=== PATIENT | male | born 1980 | race Caucasian/White ===

== ENCOUNTER → 2016-05-19 | Outpatient (CLI) | payer BC ==
--- NOTE | 2016-05-19 10:27 | CT ---
EXAMINATION TYPE: CT ChestAbdPelvis w con DATE OF EXAM: 05/19/2016 9:23 AM COMPARISON: Prior CT abdomen pelvis 13 November 2015, prior chest abdomen pelvis CT 10 Jul 2015, 24 Jul 2014, 14 January 2015 HISTORY: Testicular CA CT DLP: 1023.6 mGycm Automated exposure control for dose reduction was used. CONTRAST: CT scan of the chest, abdomen and pelvis is performed with Oral Contrast and with IV Contrast, patien t injected with 100 mL of Omnipaque 300. FINDINGS: LUNGS: The lungs are grossly clear, there is no concerning parenchymal mass or nodule identified. T here is no pleural effusion or pneumothorax seen. The tracheobronchial tree is patent. MEDIASTINUM: There are no greater than 1 cm hilar or mediastinal lymph nodes. No pericardial effusi on is seen. AORTA: No significant abnormality is seen. OTHER: No additional significant abnormality is seen. LIVER/GB: Liver shows low attenuation. Gallbladder is normal. PANCREAS: No significant abnormality is seen. SPLEEN: No significant abnormality is seen. ADRENALS: No significant abnormality is seen. KIDNEYS: Cystic foci associated with the kidneys compatible with cortical cysts measuring 14 mm mid p ole posteriorly on the right, subcentimeter lower pole on the left. Renal vein collar is present. REPRODUCTIVE ORGANS: No gross abnormality seen. BOWEL: No significant abnormality is seen. FREE AIR: No Free Air visible. ASCITES: None seen. RETROPERITONEAL ADENOPATHY: Retroperitoneal node axial image 79 shows a short axis measurement of 11 mm, additional node measures 12 mm between the inferior vena cava and aorta as on prior exam. URINARY BLADDER: No significant abnormality is seen. PELVIC ADENOPATHY: None visualized. OSSEOUS STRUCTURES: No significant abnormality is seen. IMPRESSION: Retroperitoneal nodes are unchanged compared to most recent CT but increased in size comp ared to prior CT 24 Jul 2014, 14 January 2015.
== END | disposition home or self-care (01) ==
LOC: RADCTMAIN 08:48
PROVIDERS: ATTEND Internal Medicine Hematology & Oncology
DX: Z03.89 Encounter for observation for other suspected diseases and conditions ruled out (principal); C62.90 Malignant neoplasm of unspecified testis, unspecified whether descended or undescended
CPT/HCPCS: 71260; 74177; Q9967

== ENCOUNTER → 2016-12-04 | Outpatient (CLI) | payer BC ==
--- NOTE | 2016-12-04 16:44 | CT ---
EXAMINATION TYPE: CT ChestAbdPelvis w con DATE OF EXAM: 12/04/2016 COMPARISON: CT chest abdomen and pelvis May 19, 2016 and older studies. Prior PET/CT August 03, 2015 HISTORY: Testicular cancer progress study. No active treatment. History of right-sided orchiectomy. CT DLP: 982.40 mGycm. Automated Exposure Control for Dose Reduction was Utilized. CONTRAST: CT scan of the thorax, abdomen and pelvis is performed with oral and with IV Contrast, patient inject ed with 100 ml mL of Omnipaque 300. FINDINGS: LUNGS: The lungs are grossly clear, there is no concerning parenchymal mass or nodule identified. T here is no pleural effusion or pneumothorax seen. The tracheobronchial tree is patent. MEDIASTINUM: There are no greater than 1 cm hilar or mediastinal lymph nodes. No cardiomegaly or pe ricardial effusion is seen. OTHER: No additional significant abnormality is seen. LIVER/GB: No significant abnormality is appreciated. PANCREAS: No significant abnormality is seen. SPLEEN: Tiny splenule anterior to the spleen on axial image 56 is stable. ADRENALS: No significant abnormality is seen. KIDNEYS: Subcentimeter foci likely reflecting simple cysts in both kidneys are redemonstrated. BOWEL: A few sigmoid colonic diverticula are redemonstrated. There is no CT evidence for acute divert iculitis. GENITAL ORGANS: No gross abnormality seen. LYMPH NODES: There is redemonstration of stable 1.0 x 0.9 cm lymph node aortocaval region on axial im age 81 that shows rim hyperdensity or enhancement with central hypodensity or necrosis. This is not s ignificantly changed from prior study. No new greater than 1cm abdominal or pelvic lymph nodes are ap preciated. There are prominent but subcentimeter right lower quadrant mesenteric lymph nodes redemons trated felt stable. OSSEOUS STRUCTURES: Mild multilevel anterior spurring in thoracic spine is present. Mild facet arthro artur lower lumbar spine is seen. OTHER: No significant additional abnormality is seen. IMPRESSION: Stable aortocaval 1.0 cm treated lymph node. No new mass or adenopathy is seen to sugges t neoplastic recurrence.
== END | disposition home or self-care (01) ==
LOC: RADCTMAIN 13:44
PROVIDERS: ATTEND Internal Medicine Hematology & Oncology
DX: C62.90 Malignant neoplasm of unspecified testis, unspecified whether descended or undescended (principal)
CPT/HCPCS: 71260; 74177; Q9967

== ENCOUNTER → 2017-01-20 | Outpatient (CLI) | payer BC ==
--- NOTE | 2017-01-20 14:15 | XR ---
EXAMINATION TYPE: XR chest 2V DATE OF EXAM: 01/20/2017 COMPARISON: Prior chest x-ray 05/02/2015 HISTORY: Dyspnea, chest pain TECHNIQUE: Frontal and lateral views of the chest are obtained. FINDINGS: There is been interval removal of the right-sided Port-A-Cath. No airspace disease, pneumo thorax, or pleural effusion. Cardiac mediastinal silhouette, pulmonary vascularity and vanessa not signi ficantly changed. IMPRESSION: Interval central venous catheter removal.
== END | disposition home or self-care (01) ==
LOC: RADXRMAIN 13:00
PROVIDERS: ATTEND Family Medicine
DX: R06.09 Other forms of dyspnea (principal); Z98.890 Other specified postprocedural states
CPT/HCPCS: 71020

== ENCOUNTER 2017-04-24 09:01 | Emergency (ER) | payer BC ==
[2017-04-24] MEDS ORDERED: RX INFO: IV CONTRAST WAS GIVEN 1 EACH MISC MISCELLANE PRN (09:33)
--- NOTE | 2017-04-24 09:48 | ED ---
General Adult HPI - General Chief complaint: Abdominal Pain Stated complaint: back and abdominal pain Time Seen by Provider: 04/24/17 09:22 Source: patient, RN notes reviewed Mode of arrival: ambulatory Limitations: no limitations - History of Present Illness Initial comments: 37-year-old male presents to the emergency department with a chief complaint of left-sided back pain. Patient states that he has had this left-sided back pain abdominal pain for the last week or so. He was concerned because he has a history of testicular cancer and he had very similar pain when it metastasized to his abdomen. He states that he is having some urgency of bowel movements with this. He states he just chronically has this pain. He states that he called his doctor and they scheduled him for an outpatient CAT scan but he just does not feel as if he can wait until Wednesday to have it done. Patient denies any fever chills with this. He denies any nausea or vomiting. He states he just continues to have the pains without that he should be evaluated. Patient denies any recent fever, chills, shortness of breath, chest pain, nausea vomiting, numbness or tingling, dysuria or hematuria, constipation or diarrhea, headaches or visual changes, or any other current symptoms. - Related Data Home Medications Medication Instructions Recorded Confirmed Vitamin B Complex 1 tab PO DAILY 08/21/15 08/23/15 Previous Rx's Medication Instructions Recorded Hydrocodone/Acetaminophen [Brandon 1 - 2 each PO Q4HR PRN #30 tab 08/23/15 5-325] Allergies Allergy/AdvReac Type Severity Reaction Status Date / Time No Known Allergies Allergy Verified 04/24/17 09:09 Review of Systems ROS Statement: Those systems with pertinent positive or pertinent negative responses have been documented in the HPI. ROS Other: All systems not noted in ROS Statement are negative. Past Medical History Past Medical History: Cancer Additional Past Medical History / Comment(s): testicular CAncer History of Any Multi-Drug Resistant Organisms: None Reported Past Surgical History: Orthopedic Surgery, Tonsillectomy Additional Past Surgical History / Comment(s): orchiectomy, left shoulder, port- a-cath Past Anesthesia/Blood Transfusion Reactions: No Reported Reaction Past Psychological History: No Psychological Hx Reported Smoking Status: Current some day smoker Past Alcohol Use History: Occasional Past Drug Use History: None Reported General Exam - General Exam Comments Initial Comments: General: The patient is awake and alert, in no distress, and does not appear acutely ill. Eye: Pupils are equal, round and reactive to light, extra-ocular movements are intact. Ears, nose, mouth and throat: There are moist mucous membranes. Neck: The neck is supple, there is no tenderness. Cardiovascular: There is a regular rate and rhythm. No murmur, rub or gallop is appreciated. Respiratory: Lungs are clear to auscultation, respirations are non-labored, breath sounds are equal. No wheezes, stridor, rales, or rhonchi. Gastrointestinal: Soft, non-distended, non-tender abdomen without masses or organomegaly noted. There is no rebound or guarding present. No CVA tenderness. Bowel sounds are unremarkable. Back: There is no tenderness to palpation in the midline. There is no obvious deformity. No rashes noted. Musculoskeletal: Normal ROM, no tenderness, There is no pedal edema. There is no calf tenderness or swelling. Sensation intact. Pulses equal bilaterally 2+. Neurological: CN II-XII intact, There are no obvious motor or sensory deficits. Coordination appears grossly intact. Speech is normal. Skin: Skin is warm and dry and no rashes or lesions are noted. Psychiatric: Cooperative, appropriate mood & affect, normal judgment. Limitations: no limitations Course Vital Signs 04/24/17 09:07 Temperature 97.0 F L Pulse Rate 60 Respiratory 20 Rate Blood Pressure 129/89 O2 Sat by Pulse 99 Oximetry Medical Decision Making - Medical Decision Making 37-year-old male presents for left-sided back pain and abdominal pain. At this time patient's CAT scan is reviewed. We did discuss that there is an enlarged lymph node. We discussed the need to follow-up with their oncologist. We did discuss return parameters all questions. Patient family stated they understood and the on agreement. All questions have been answered. They'll be discharged. - Lab Data Result diagrams: 04/24/17 09:37 04/24/17 09:37 Lab Results 04/24/17 04/24/17 04/24/17 Range/Units 09:37 09:37 09:45 WBC 5.9 (3.8-10.6) k/uL RBC 5.02 (4.30-5.90) m/uL Hgb 15.5 (13.0-17.5) gm/dL Hct 47.6 (39.0-53.0) % MCV 94.8 (80.0-100.0) fL MCH 31.0 (25.0-35.0) pg MCHC 32.7 (31.0-37.0) g/dL RDW 11.8 (11.5-15.5) % Plt Count 180 (150-450) k/uL Neutrophils % 74 % Lymphocytes % 18 % Monocytes % 5 % Eosinophils % 1 % Basophils % 0 % Neutrophils # 4.3 (1.3-7.7) k/uL Lymphocytes # 1.1 (1.0-4.8) k/uL Monocytes # 0.3 (0-1.0) k/uL Eosinophils # 0.1 (0-0.7) k/uL Basophils # 0.0 (0-0.2) k/uL Sodium 143 (137-145) mmol/L Potassium 5.0 (3.5-5.1) mmol/L Chloride 104 (98-107) mmol/L Carbon Dioxide 27 (22-30) mmol/L Anion Gap 12 mmol/L BUN 16 (9-20) mg/dL Creatinine 0.93 (0.66-1.25) mg/dL Est GFR (MDRD) Af Amer >60 (>60 ml/min/1.73 sqM) Est GFR (MDRD) Non-Af >60 (>60 ml/min/1.73 sqM) Glucose 85 (74-99) mg/dL Calcium 9.8 (8.4-10.2) mg/dL Total Bilirubin 0.6 (0.2-1.3) mg/dL AST 26 (17-59) U/L ALT 30 (21-72) U/L Alkaline Phosphatase 65 (38-126) U/L Total Protein 7.5 (6.3-8.2) g/dL Albumin 4.5 (3.5-5.0) g/dL Urine Color Light Yellow Urine Appearance Clear (Clear) Urine pH 7.5 (5.0-8.0) Ur Specific [place] 1.013 (1.001-1.035) Urine Protein Negative (Negative) Urine Glucose (UA) Negative (Negative) Urine Ketones Negative (Negative) Urine Blood Negative (Negative) Urine Nitrite Negative (Negative) Urine Bilirubin Negative (Negative) Urine Urobilinogen <2.0 (<2.0) mg/dL Ur Leukocyte Esterase Negative (Negative) - Radiology Data Radiology results: report reviewed, image reviewed Disposition Clinical Impression: Lymph node enlargement, Abdominal pain Disposition: HOME SELF-CARE Condition: Stable Instructions: Abdominal Pain (ED) Additional Instructions: Please use medication as discussed. Please follow up with family doctor if symptoms have not improved over the next two days. Please return to the emergency room if your symptoms increase or worsen or for any other concerns. Referrals: Cecil Luciano MD [Primary Care Provider] - 1-2 days Saulo Cervantes MD [STAFF PHYSICIAN] - 1-2 days Time of Disposition: 11:10
[2017-04-24 09:55] LABS: Basophils % (A) 0 %; Eosinophils # (A) 0.1 k/uL (0-0.7); Eosinophils % (A) 1 %; HCT 47.6 % (39.0-53.0); HGB 15.5 gm/dL (13.0-17.5); Lymphocytes # (A) 1.1 k/uL (1.0-4.8); Lymphocytes % (A) 18 %; MCHC 32.7 g/dL (31.0-37.0); MCV 94.8 fL (80.0-100.0); Mean Platelet Volume 6.8; Monocytes # (A) 0.3 k/uL (0-1.0); Monocytes % (A) 5 %; Neutrophils # (A) 4.3 k/uL (1.3-7.7); Neutrophils % (A) 74 %; Platelet Count 180 k/uL (150-450); RBC 5.02 m/uL (4.30-5.90); RDW 11.8 % (11.5-15.5); WBC 5.9 k/uL (3.8-10.6)
[2017-04-24 09:56] LABS: Appearance,Urine Clear (Clear); Bilirubin,Urine Negative (Negative); Blood,Urine Negative (Negative); Color,Urine Light Yellow; Glucose,Urine (UA) Negative (Negative); Ketones,Urine Negative (Negative); Leukocyte Esterase,Urine Negative (Negative); Nitrite,Urine Negative (Negative); PH, Urine 7.5 (5.0-8.0); Protein,Urine Negative (Negative); Specific Gravity,Urine 1.013 (1.001-1.035); Urobilinogen,Urine <2.0 mg/dL (<2.0)
[2017-04-24 10:08] LABS: ALT 30 U/L (21-72); AST 26 U/L (17-59); Albumin 4.5 g/dL (3.5-5.0); Alkaline Phosphatase 65 U/L (38-126); Anion Gap 12 mmol/L; Blood Urea Nitrogen 16 mg/dL (9-20); Calcium 9.8 mg/dL (8.4-10.2); Carbon Dioxide 27 mmol/L (22-30); Chloride 104 mmol/L (98-107); Glucose 85 mg/dL (74-99); Sodium 143 mmol/L (137-145); Total Bilirubin 0.6 mg/dL (0.2-1.3); Total Protein 7.5 g/dL (6.3-8.2)
--- NOTE | 2017-04-24 10:41 | CT ---
EXAMINATION TYPE: CT abdomen pelvis w con DATE OF EXAM: 04/24/2017 REFERENCE: Previous CT scan of the chest, abdomen and pelvis dated 12/04/2016 HISTORY: Pain HISTORY: Abdominal pain; testicular cancer stage 3 CT DLP: 1441 mGy Automated exposure control for dose reduction was used. TECHNIQUE: Helical acquisition through the abdomen and pelvis was obtained following the oral ingesti on of without Oral Contrast and following intravenous administration of 100 ml mL of Omnipaque 300. T he data was reformatted in axial, coronal and sagittal projections. FINDINGS: Visualized portions of the lungs are clear. There is no pleural or pericardial fluid. The heart is not enlarged. Within the abdomen, the liver is normal in size. The liver, spleen and gallbladder appear normal. Both adrenal glands appear normal. There is a 1.4 cm cystic lesion in the mid polar region of the right kidney. This is slightly more ap parent than on the previous exam. There is a 3 to 4 mm low attenuating lesion in the lower pole of th e left kidney, unchanged from previous. The pancreas is unremarkable. Previously described 9.3 x 9.8 elevated lymph node in the aortocaval region of the abdomen is minimal ly more prominent on today's examination measuring 12.8 mm. No other retroperitoneal, iliac or inguin al adenopathy is seen. The bladder is unremarkable. There is no significant diverticular change and there is no radiographic evidence of diverticulitis. The appendix is normal. Small bowel loops are normal in caliber. There is no free fluid and no free air. No bony destructive lesion is seen. There is minimal hypertrophic spondylosis in the lower dorsal spi ne. IMPRESSION: 1. NO ACUTE INFLAMMATORY ABNORMALITY. 2. NO OSSEOUS LESION. 3. DIFFERENCE IN MEASUREMENTS OF THE AORTOCAVAL LYMPH NODE NOTED PREVIOUSLY IS LIKELY WITHIN THE AREA S OF MEASUREMENT. 4. PROBABLE CYSTIC CHANGE IN BOTH KIDNEYS. THIS COULD BE CONFIRMED WITH ULTRASOUND.
[2017-04-24] MEDS ORDERED: LORazepam 2 MG/ML INJ IV STA (11:11)
[2017-04-24 11:31] VITALS: BP 115/87; PULSE 74; RESP 18; TEMP 98.7
== END 2017-04-24 11:30 | disposition home or self-care (01) ==
LOC: EC 09:01
DX: R59.0 Localized enlarged lymph nodes (principal); R10.9 Unspecified abdominal pain; M54.9 Dorsalgia, unspecified; Z85.47 Personal history of malignant neoplasm of testis; Z90.79 Acquired absence of other genital organ(s); Z79.899 Other long term (current) drug therapy
CPT/HCPCS: 36415; 80053; 85025; 81003; 74177; 99284; 96374; J2060; Q9967

== ENCOUNTER → 2017-06-03 | Outpatient (CLI) | payer BC ==
--- NOTE | 2017-06-03 19:42 | CT ---
EXAMINATION TYPE: CT abdomen pelvis w con DATE OF EXAM: 06/03/2017 COMPARISON: 12/04/2016 and 04/24/2017. HISTORY: Patient in for follow up on testicular cancer-right teste removed. CT DLP: 1290.2 mGycm Automated exposure control for dose reduction was used. TECHNIQUE: Helical acquisition of images was performed from the lung bases through the pelvis. CONTRAST: Performed with Oral Contrast and with IV Contrast, patient injected with 100 mL of Isovue M300. FINDINGS: LUNG BASES: No significant abnormality is appreciated. LIVER/GB: No new focal hepatic masses are seen. The liver is unremarkable in enhancement. No intrahep atic biliary ductal dilatation. No cholelithiasis. PANCREAS: No significant abnormality is seen. SPLEEN: No significant abnormality is seen. Small splenule is again seen anterior to the pauma splee n. ADRENALS: No thickening or nodularity. KIDNEYS: 9 mm right upper pole renal cyst is appreciated. Otherwise the kidneys enhance symmetrically . FREE AIR: No free air is visualized. ADENOPATHY: 1.2 cm short axis peripherally calcified centrally necrotic aortocaval lymph node is unc hanged from the prior examinations. No new adenopathy. Small (nonpathologically enlarged) internal il iac lymph nodes are seen and superficial inguinal lymph nodes are seen. REPRODUCTIVE ORGANS: No significant abnormality is seen URINARY BLADDER: Incompletely distended but otherwise unremarkable. OSSEOUS STRUCTURES: Osseous structures appear intact. Minimal degenerative changes of the lower thor acic spine are seen. No suspicious osseous lesion. BOWEL: Appendix is air-filled and within normal limits. Few sigmoid diverticula are again appreciate d. No bowel thickening or dilatation. IMPRESSION: 1. STABLE PERIPHERALLY CALCIFIED SOLITARY AORTOCAVAL LYMPH NODE IN COMPARISON TO PRIOR EXAMS. NO NEW ADENOPATHY WITHIN THE ABDOMEN OR PELVIS. 2. NO NEW EVIDENCE OF VISCERAL OR OSSEOUS METASTASIS WITHIN THE ABDOMEN OR PELVIS.
== END | disposition home or self-care (01) ==
LOC: RADCTMAIN 14:34
PROVIDERS: ATTEND Internal Medicine Hematology & Oncology
DX: C62.90 Malignant neoplasm of unspecified testis, unspecified whether descended or undescended (principal); R59.0 Localized enlarged lymph nodes
CPT/HCPCS: 74177; Q9967

== ENCOUNTER → 2017-06-16 | Outpatient (CLI) | payer BC ==
--- NOTE | 2017-06-16 11:57 | ECHOS ---
STRESS ECHOCARDIOGRAM INDICATIONS: Chest pain. BASELINE HEART RATE: 64 BASELINE BLOOD PRESSURE: 115/82 MAXIMUM HEART RATE: 176 MAXIMUM BLOOD PRESSURE: 152/70 85% MPHR: 156 100% MPHR: 184 METS: 12.1 MAXIMUM STAGE REACHED: 3 TOTAL EXERCISE TIME: 11:06 CLINICAL INFORMATION: Baseline EKG shows sinus rhythm, normal axis, normal intervals. Patient exercised on Irwin protocol for a total of 11 minutes achieving 12 METS, 95% of predicted maximal heart rate without chest pain or diagnostic ST-segment depression. Baseline echo shows normal left ventricular size, wall motion, systolic function. Postexercise, there is normal hyperdynamic response of all segments of myocardium noted. CONCLUSIONS: 1. Excellent exercise tolerance. 2. Negative stress test by EKG criteria. 3. Negative stress echo. MMODL / IJN: [id number] /
== END | disposition home or self-care (01) ==
LOC: RADNMMAIN 10:01
PROVIDERS: ATTEND Family Medicine
DX: R07.9 Chest pain, unspecified (principal)
CPT/HCPCS: 93017; 93350

== ENCOUNTER → 2017-06-25 | Outpatient (CLI) | payer BC ==
--- NOTE | 2017-06-30 16:51 | HM ---
HOLTER MONITOR REPORT DATE OF STUDY: 06/25/2017 CLINICAL INFORMATION: The patient was monitored for 24 hours. The baseline rhythm appeared to be a sinus mechanism with a minimum heart rate of 47 beats per minute, maximum heart rate of 142 beats per minute, and average heart rate of 75 beats per minute. Ventricular ectopic events were not seen during this 24-hour monitoring. Supraventricular ectopic events were a rare as well. No evidence of any sustained tachy- or bradyarrhythmia noted. The patient reported some symptoms of sharp pain, and these episodes were associated with sinus mechanism. CONCLUSION: 1. This is a 24-hour Holter monitor. 2. Sinus rhythm as the baseline mechanism. 3. Rare supraventricular ectopic events. 4. No evidence of any ventricular ectopic events. 5. No evidence of sinus pause or sinus arrest. 6. The patient reported intermittent episodes of symptoms of squeezing and sharp pain, and the symptoms were associated with normal sinus mechanism. MMODL / IJN: [id number] /
== END | disposition home or self-care (01) ==
LOC: RADECHMAIN 11:57
PROVIDERS: ATTEND Family Medicine
DX: I49.3 Ventricular premature depolarization (principal)
CPT/HCPCS: 93225; 93226

== ENCOUNTER 2017-12-07 01:27 | Emergency (ER) | payer BC ==
--- NOTE | 2017-12-07 01:30 | ED ---
General Adult HPI - General Stated complaint: Chest pain Time Seen by Provider: 12/07/17 01:30 - History of Present Illness Initial comments: Camelia is a 37-year-old gentleman with a past medical history of testicular cancer with recurrence and metastases which was treated with chemotherapy. Patient presents the emergency department today for evaluation of chest pain and pressure. Patient reports that he's been having intermittent chest pressure and a feeling that there is pressure crushing his chest with occasional sharp pains for a few days. Patient reports the pain seemed to be worse at night. He reports that when he is around his cancer work he is able to distract himself from this pain. Patient reports that last night he was laying in bed and felt like there was a heavy weight on his throat and chest. This kept him awake throughout the night. Today patient was able to go golfing with his friends. He was able to perform 9 rounds of golf and carry his golf bag with no difficulty despite being somewhat tired from not sleeping well. Patient reports that this evening again when he tried to go to bed he felt as though there was a weight on his neck and chest. is been evaluated in the past and had a thorough cardiac evaluation including an echo, cardiac stress test, Holter monitor. These were unremarkable. During history patient began to cry and did state that he feels as though he may be having panic attacks because his follow-up PET scan is later this week and he is very paranoid that he is going to be diagnosed with cancer again. - Related Data Home Medications Medication Instructions Recorded Confirmed Vitamin B Complex 1 tab PO DAILY 08/21/15 08/23/15 Previous Rx's Medication Instructions Recorded Hydrocodone/Acetaminophen [[place] 1 - 2 each PO Q4HR PRN #30 tab 08/23/15 5-325] LORazepam [Ativan] 0.5 mg PO BID #10 tab 04/24/17 LORazepam [Ativan] 1 mg PO HS 5 Days #5 tab 12/07/17 Allergies Allergy/AdvReac Type Severity Reaction Status Date / Time No Known Allergies Allergy Verified 12/07/17 01:38 Review of Systems ROS Statement: Those systems with pertinent positive or pertinent negative responses have been documented in the HPI. ROS Other: All systems not noted in ROS Statement are negative. Past Medical History Past Medical History: Cancer Additional Past Medical History / Comment(s): testicular CAncer History of Any Multi-Drug Resistant Organisms: None Reported Past Surgical History: Orthopedic Surgery, Tonsillectomy Additional Past Surgical History / Comment(s): orchiectomy, left shoulder, port- a-cath Past Anesthesia/Blood Transfusion Reactions: No Reported Reaction Past Psychological History: No Psychological Hx Reported Smoking Status: Current some day smoker Past Alcohol Use History: Occasional Past Drug Use History: None Reported General Exam - General Exam Comments Initial Comments: GENERAL: Patient is well-developed and well-nourished. Patient is nontoxic and well- hydrated and is in no distress. HENT: Normocephalic, Atraumatic. Neck is soft and supple. No significant lymphadenopathy is noted. Oropharynx is clear. Moist mucous membranes. Neck has full range of motion without eliciting any pain. EYES: The sclera were anicteric and conjunctiva were pink and moist. Extraocular movements were intact and pupils were equal round and reactive to light. Eyelids were unremarkable. PULMONARY: Unlabored respirations. Good breath sounds bilaterally. No audible rales rhonchi or wheezing was noted. CARDIOVASCULAR: There is a regular rate and rhythm without any murmurs gallops or rubs. ABDOMEN: Soft and nontender with normal bowel sounds. SKIN: Skin is clear with no lesions or rashes and otherwise unremarkable. NEUROLOGIC: Patient is alert and oriented x3. Cranial nerves II through XII are grossly intact. Motor and sensory are also intact. Normal speech, volume and content. Symmetrical smile. MUSCULOSKELETAL: Normal extremities with adequate strength and full range of motion. No lower extremity swelling or edema. No calf tenderness. LYMPHATICS: No significant lymphadenopathy is noted PSYCHIATRIC: Appropriately anxious Limitations: no limitations Course Vital Signs 12/07/17 12/07/17 12/07/17 01:36 01:54 02:58 Temperature 97.8 F Pulse Rate 62 64 Pulse Rate [ 65 Clinical Appeals Auditor ] Respiratory 17 15 Rate Blood Pressure 154/99 116/78 O2 Sat by Pulse 100 96 Oximetry EKG Findings - EKG Comments: EKG Findings:: EKG obtained at 1:39 AM, rate is 65, rhythm is sinus, normal axis , normal intervals, MI 138, QRS 90, QTC 420. There is no evidence of acute ischemia infarction. Medical Decision Making - Medical Decision Making The patient was seen and evaluated, history was obtained from the patient Patient with palpitations and a crushing feeling of his throat and chest which is worse when laying down at night and resolves with distraction. Considering the patient's history I do suspect that this is likely anxiety related to his upcoming PET scan in his appropriate worried that he may be diagnosed with recurrent metastatic testicular cancer. However given the cancer history and history of chemotherapy I do feel he warrants a workup to rule out PE or acute coronary syndrome. Patient is agreeable to this. EKG normal sinus rhythm with no evidence of acute ischemia or infarction Chest x-ray with no acute pathology Labs and no significant abnormalities Patient resting comfortably with resolution of his symptoms after Ativan Results were discussed with the patient who expresses some relief. Patient expresses some embarrassment that he has here if nothing is wrong. I reassured the patient that this is an appropriate anxiety considering his medical history and his fear of recurrent testicular cancer. At this time I will prescribe the patient a few days of Ativan to take at night to help him sleep. Patient is agreeable to this. All questions pertaining to care were answered the best my ability and the patient was discharged home in stable condition. - Lab Data Result diagrams: 12/07/17 01:50 12/07/17 01:50 Lab Results 12/07/17 12/07/17 12/07/17 Range/Units 01:50 01:50 01:50 WBC 5.8 (3.8-10.6) k/uL RBC 4.90 (4.30-5.90) m/uL Hgb 15.1 (13.0-17.5) gm/dL Hct 43.4 (39.0-53.0) % MCV 88.6 (80.0-100.0) fL MCH 30.8 (25.0-35.0) pg MCHC 34.8 (31.0-37.0) g/dL RDW 12.0 (11.5-15.5) % Plt Count 184 (150-450) k/uL Neutrophils % 50 % Lymphocytes % 38 % Monocytes % 7 % Eosinophils % 2 % Basophils % 1 % Neutrophils # 2.9 (1.3-7.7) k/uL Lymphocytes # 2.2 (1.0-4.8) k/uL Monocytes # 0.4 (0-1.0) k/uL Eosinophils # 0.1 (0-0.7) k/uL Basophils # 0.0 (0-0.2) k/uL PT 10.3 (9.0-12.0) sec INR 1.1 (<1.2) APTT 25.8 (22.0-30.0) sec D-Dimer <0.17 (<0.60) mg/L FEU Sodium 139 (137-145) mmol/L Potassium 3.9 (3.5-5.1) mmol/L Chloride 106 (98-107) mmol/L Carbon Dioxide 24 (22-30) mmol/L Anion Gap 9 mmol/L BUN 15 (9-20) mg/dL Creatinine 0.93 (0.66-1.25) mg/dL Est GFR (CKD-EPI)AfAm >90 (>60 ml/min/1.73 sqM) Est GFR (CKD-EPI)NonAf >90 (>60 ml/min/1.73 sqM) Glucose 94 (74-99) mg/dL Calcium 9.8 (8.4-10.2) mg/dL Magnesium 1.9 (1.6-2.3) mg/dL Total Bilirubin 0.7 (0.2-1.3) mg/dL AST 33 (17-59) U/L ALT 25 (21-72) U/L Alkaline Phosphatase 60 (38-126) U/L Troponin I (0.000-0.034) ng/mL Total Protein 7.7 (6.3-8.2) g/dL Albumin 4.5 (3.5-5.0) g/dL 12/07/17 Range/Units 01:50 WBC (3.8-10.6) k/uL RBC (4.30-5.90) m/uL Hgb (13.0-17.5) gm/dL Hct (39.0-53.0) % MCV (80.0-100.0) fL MCH (25.0-35.0) pg MCHC (31.0-37.0) g/dL RDW (11.5-15.5) % Plt Count (150-450) k/uL Neutrophils % % Lymphocytes % % Monocytes % % Eosinophils % % Basophils % % Neutrophils # (1.3-7.7) k/uL Lymphocytes # (1.0-4.8) k/uL Monocytes # (0-1.0) k/uL Eosinophils # (0-0.7) k/uL Basophils # (0-0.2) k/uL PT (9.0-12.0) sec INR (<1.2) APTT (22.0-30.0) sec D-Dimer (<0.60) mg/L FEU Sodium (137-145) mmol/L Potassium (3.5-5.1) mmol/L Chloride (98-107) mmol/L Carbon Dioxide (22-30) mmol/L Anion Gap mmol/L BUN (9-20) mg/dL Creatinine (0.66-1.25) mg/dL Est GFR (CKD-EPI)AfAm (>60 ml/min/1.73 sqM) Est GFR (CKD-EPI)NonAf (>60 ml/min/1.73 sqM) Glucose (74-99) mg/dL Calcium (8.4-10.2) mg/dL Magnesium (1.6-2.3) mg/dL Total Bilirubin (0.2-1.3) mg/dL AST (17-59) U/L ALT (21-72) U/L Alkaline Phosphatase (38-126) U/L Troponin I <0.012 (0.000-0.034) ng/mL Total Protein (6.3-8.2) g/dL Albumin (3.5-5.0) g/dL Disposition Clinical Impression: Atypical chest pain Disposition: HOME SELF-CARE Condition: Good Instructions: Chest Pain (ED), Panic Attack (ED) Prescriptions: LORazepam [Ativan] 1 mg PO HS 5 Days #5 tab Is patient prescribed a controlled substance at d/c from ED?: No Referrals: Cecil Luciano MD [Primary Care Provider] - 1-2 days Time of Disposition: 03:11
[2017-12-07] MEDS ORDERED: ASPIRIN 81 MG PO STA (01:52)
[2017-12-07] MEDS ORDERED: LORazepam 1 MG TAB PO STA (01:52)
--- NOTE | 2017-12-07 02:12 | XR ---
EXAMINATION TYPE: XR chest 2V DATE OF EXAM: 12/07/2017 COMPARISON: 01/20/2017 HISTORY: Chest pain TECHNIQUE: Frontal and lateral views of the chest are obtained. FINDINGS: Heart and mediastinum are normal. Lungs are clear. Diaphragm is normal. Bony thorax appear s normal. There are chest leads. IMPRESSION: Normal chest. No change.
[2017-12-07 02:24] LABS: D-Dimer <0.17 mg/L FEU (<0.60); INR 1.1 (<1.2); Partial Thromboplastin Time 25.8 sec (22.0-30.0); Prothrombin Time 10.3 sec (9.0-12.0)
[2017-12-07 02:26] LABS: ALT 25 U/L (21-72); AST 33 U/L (17-59); Albumin 4.5 g/dL (3.5-5.0); Alkaline Phosphatase 60 U/L (38-126); Anion Gap 9 mmol/L; Blood Urea Nitrogen 15 mg/dL (9-20); Calcium 9.8 mg/dL (8.4-10.2); Carbon Dioxide 24 mmol/L (22-30); Chloride 106 mmol/L (98-107); Glucose 94 mg/dL (74-99); Magnesium 1.9 mg/dL (1.6-2.3); Sodium 139 mmol/L (137-145); Total Bilirubin 0.7 mg/dL (0.2-1.3); Total Protein 7.7 g/dL (6.3-8.2)
[2017-12-07 02:31] LABS: Basophils % (A) 1 %; Eosinophils # (A) 0.1 k/uL (0-0.7); Eosinophils % (A) 2 %; HCT 43.4 % (39.0-53.0); HGB 15.1 gm/dL (13.0-17.5); Lymphocytes # (A) 2.2 k/uL (1.0-4.8); Lymphocytes % (A) 38 %; MCH 30.8 pg (25.0-35.0); MCHC 34.8 g/dL (31.0-37.0); MCV 88.6 fL (80.0-100.0); Mean Platelet Volume 6.6; Monocytes # (A) 0.4 k/uL (0-1.0); Monocytes % (A) 7 %; Neutrophils # (A) 2.9 k/uL (1.3-7.7); Neutrophils % (A) 50 %; Platelet Count 184 k/uL (150-450); WBC 5.8 k/uL (3.8-10.6)
[2017-12-07 02:33] LABS: Potassium 3.9 mmol/L (3.5-5.1)
[2017-12-07 03:00] VITALS: PULSE 64
[2017-12-07 04:36] VITALS: BP 116/69; RESP 18; TEMP 98
== END 2017-12-07 03:45 | disposition home or self-care (01) ==
LOC: EC 01:27
DX: R07.89 Other chest pain (principal); R00.2 Palpitations; F17.200 Nicotine dependence, unspecified, uncomplicated; Z85.47 Personal history of malignant neoplasm of testis; Z92.21 Personal history of antineoplastic chemotherapy
CPT/HCPCS: 36415; 71046; 80053; 83735; 84484; 85025; 85379; 85610; 85730; 99285

== ENCOUNTER → 2017-12-09 | Outpatient (CLI) | payer BC ==
--- NOTE | 2017-12-09 10:38 | CT ---
EXAMINATION TYPE: CT abdomen pelvis w con DATE OF EXAM: 12/09/2017 COMPARISON: 06/03/2017 HISTORY: Testicular cancer, follow up scan CT DLP: 1318 mGycm Automated exposure control for dose reduction was used. TECHNIQUE: Helical acquisition of images was performed from the lung bases through the pelvis. CONTRAST: Performed with Oral Contrast and with IV Contrast, patient injected with 100 mL of Isovue 300. FINDINGS: LUNG BASES: No significant abnormality is appreciated. LIVER/GB: Unremarkable enhancement. No intrahepatic biliary ductal dilatation. No cholelithiasis. No focal hepatic mass. PANCREAS: No significant abnormality is seen. SPLEEN: No significant abnormality is seen. Small splenule is redemonstrated adjacent to the [place] s pleen. ADRENALS: No nodularity or thickening. KIDNEYS: Redemonstrated is a small approximately 9 mm right upper pole posterior cortical renal cyst. No other focal renal lesion is seen. No hydronephrosis of either kidney. FREE AIR: No free air is visualized. ADENOPATHY: There is a stable 1.2 cm short axis peripherally calcified aortocaval lymph node on seri es 3 image 40, unchanged from priors. No new adenopathy. Nonenlarged superficial inguinal lymph nodes contain fatty vanessa. REPRODUCTIVE ORGANS: No significant abnormality is seen URINARY BLADDER: No significant abnormality is seen. OSSEOUS STRUCTURES: Minimal degenerative changes of the lower thoracic spine are again seen. No new suspicious osseous lesion. Stable lucent lesion of the left iliac bone is seen on image 61. BOWEL: Few sigmoid diverticula are again noted. No dilated large or small bowel. OTHER: Abdominal aorta is of normal course and caliber. IMPRESSION: 1. STABLE TREATED PERIPHERALLY CALCIFIED SOLITARY AORTOCAVAL RETROPERITONEAL LYMPH NODE. NO NEW ADENO PARTH. 2. AGAIN THERE IS NO EVIDENCE OF VISCERAL OR OSSEOUS METASTASIS WITHIN THE ABDOMEN OR PELVIS.
== END ==
LOC: RADCTMAIN 08:09
PROVIDERS: ATTEND Internal Medicine Hematology & Oncology
DX: C62.90 Malignant neoplasm of unspecified testis, unspecified whether descended or undescended (principal)
CPT/HCPCS: 74177; Q9967

== ENCOUNTER → 2018-06-10 | Outpatient (CLI) | payer BC ==
--- NOTE | 2018-06-10 15:44 | CT ---
EXAMINATION TYPE: CT abdomen pelvis w con DATE OF EXAM: 06/10/2018 COMPARISON: 12/09/2017 HISTORY: Follow up testicular cancer. CT DLP: 1483 mGycm Automated exposure control for dose reduction was used. TECHNIQUE: Helical acquisition of images was performed from the lung bases through the pelvis. CONTRAST: Performed with Oral Contrast and with IV Contrast, patient injected with 100 mL of Isovue M300. FINDINGS: LUNG BASES: No significant abnormality is appreciated. LIVER/GB: No significant abnormality is appreciated. No cholelithiasis. No hepatic mass is seen. PANCREAS: No significant abnormality is seen. No ductal dilatation. SPLEEN: No significant abnormality is seen. Small splenule is again noted. ADRENALS: No nodularity or thickening. KIDNEYS: Right renal cortical cyst superior pole is unchanged as well as too small to accurately rupa acterize left upper pole renal lesion. FREE AIR: No free air is visualized. ADENOPATHY: There is a stable 1.2 cm peripherally calcified lymph node in the periaortic region on se jean 3 image 40, possibly representing a calcified treated lymph node. Smaller 3 mm scattered periaor tic lymph nodes are stable. No greater than 1 cm short axis lymph node. No new suspicious adenopathy in the abdomen or pelvis. REPRODUCTIVE ORGANS: No significant abnormality is seen URINARY BLADDER: Decompressed and incompletely evaluated on CT. OSSEOUS STRUCTURES: Minimal degenerative changes of the lower visualized thoracic spine. No new susp icious osseous lesion. Stable lucent lesion of the left iliac bone on series 3 image 60. BOWEL: No dilated large or small bowel is seen. Appendix is air-filled and within normal limits. The previously seen few sigmoid diverticula are again noted without pericolonic fat stranding. OTHER: Abdominal aorta is of normal course and caliber. IMPRESSION: 1. THE 1.2 CM SHORT AXIS RIGHT PERIAORTIC LYMPH NODE REMAINS CALCIFIED AND STABLE IN SIZE AGAIN LIKEL Y RELATED TO AGE-RELATED LYMPH NODE. NO NEW ADENOPATHY IN THE ABDOMEN OR PELVIS. 2. NO NEW EVIDENCE OF VISCERAL OR OSSEOUS METASTASIS WITHIN THE ABDOMEN OR PELVIS.
== END ==
LOC: RADCTMAIN 12:49
PROVIDERS: ATTEND Internal Medicine Hematology & Oncology
DX: I89.8 Other specified noninfective disorders of lymphatic vessels and lymph nodes (principal); C62.90 Malignant neoplasm of unspecified testis, unspecified whether descended or undescended
CPT/HCPCS: 74177; Q9967

== ENCOUNTER → 2019-08-14 | Outpatient (CLI) | payer BC ==
--- NOTE | 2019-08-14 09:49 | CT ---
EXAMINATION TYPE: CT ChestAbdPelvis w con DATE OF EXAM: 08/14/2019 COMPARISON: Most recent CT June 10, 2018 and older CTs. Prior PET/CT August 03, 2015 HISTORY: follow up testicular cancer right sided. CT DLP: 1083 mGycm. Automated Exposure Control for Dose Reduction was Utilized. CONTRAST: CT scan of the thorax, abdomen and pelvis is performed with oral and with IV Contrast, patient inject ed with 100 mL of Isovue 300. FINDINGS: LUNGS: The lungs are grossly clear, there is no new concerning parenchymal mass or nodule identified. There is no pleural effusion or pneumothorax seen. The tracheobronchial tree is patent. MEDIASTINUM: There are no new greater than 1 cm hilar or mediastinal lymph nodes. No cardiomegaly o r pericardial effusion is seen. OTHER: Tiny amount of bilateral subareolar gynecomastia slightly more prominent from prior study. LIVER/GB: No significant abnormality is appreciated. PANCREAS: No significant abnormality is seen. SPLEEN: No significant abnormality is seen. ADRENALS: No significant abnormality is seen. KIDNEYS: Roughly 1.0 cm simple appearing thin-walled cyst posteriorly upper pole right kidney axial i mage 22 series 6 is slightly larger from prior studies. A few scattered pelvic phleboliths. BOWEL: The oral contrast reaches level of splenic flexure. No suspicious small or large bowel dilatat ion. Mild to moderate amount of fecal prominence in the left colon. Incidental normal appearing appen danay anteriorly from the cecum. GENITAL ORGANS: No gross abnormality seen. LYMPH NODES: No new greater than 1cm abdominal or pelvic lymph nodes are appreciated. Stable size rim calcified 1.0 cm aortocaval lymph node axial image [address] Stable prominent but subc entimeter right lower quadrant mesenteric lymph nodes reference axial image 45. OSSEOUS STRUCTURES: Mild multilevel spurring in the spine redemonstrated. OTHER: Right testicle redemonstrated surgically absent. IMPRESSION: Stable 1.0 cm treated aortocaval lymph node. No new or enlarging masses or adenopathy id entified.
== END | disposition home or self-care (01) ==
LOC: RADCTMAIN 07:21
PROVIDERS: ATTEND Internal Medicine Hematology & Oncology
DX: R91.1 Solitary pulmonary nodule (principal); C62.90 Malignant neoplasm of unspecified testis, unspecified whether descended or undescended
CPT/HCPCS: 71260; 74177; Q9967

== ENCOUNTER → 2020-05-08 | Outpatient (CLI) | payer BC ==
--- NOTE | 2020-05-08 15:14 | CT ---
EXAMINATION TYPE: CT abdomen pelvis w con DATE OF EXAM: 05/08/2020 COMPARISON: CT August 14, 2019 and older studies HISTORY: Testicular cancer. Testicular/groin pain. CT DLP: 1666 mGycm, Automated Exposure Control for Dose Reduction was Utilized. CONTRAST: CT scan of the abdomen and pelvis is performed with oral and with IV Contrast, patient injected with 100 mL of Isovue M300. FINDINGS: LUNG BASES: No significant abnormality is appreciated. LIVER/GB: No significant abnormality is appreciated. PANCREAS: No significant abnormality is seen. SPLEEN: No significant abnormality is seen. ADRENALS: No significant abnormality is seen. KIDNEYS: Roughly 1.0 cm thin-walled cyst posteriorly upper pole right kidney series 7 image 24 redemo nstrated. Persistent circumaortic left renal vein which is normal variant BOWEL: Oral contrast was not reached terminal ileum on current study making evaluation difficult slig htly suboptimal. Normal-appearing appendix seen from cecum. No suspicious small or large bowel dilata tion. PROSTATE/SEMINAL VESICLES: Occasional scattered bilateral pelvic phleboliths redemonstrated. LYMPH NODES: No new greater than 1cm abdominal or pelvic lymph nodes are appreciated. Stable 1.0 cm rim calcified aortocaval lymph node image 44. OSSEOUS STRUCTURES: Small posterior disc herniations L4-L5 and L5-S1 level sagittal image 44. OTHER: Scarring from right sided orchiectomy extends superiorly into the medial right groin. IMPRESSION: No suspicious new mass or adenopathy identified to suggest active neoplastic recurrence.
== END | disposition home or self-care (01) ==
LOC: RADCTMAIN 12:57
PROVIDERS: ATTEND Internal Medicine Hematology & Oncology
DX: C62.90 Malignant neoplasm of unspecified testis, unspecified whether descended or undescended (principal)
CPT/HCPCS: 74177; Q9967 ×2

== ENCOUNTER 2020-11-04 17:57 | Emergency (ER) | payer BC ==
[2020-11-04 18:08] VITALS: BP 142/83; PULSE 72; RESP 20; TEMP 99.1
--- NOTE | 2020-11-04 18:52 | ED ---
Skin/Abscess/FB HPI - General Chief complaint: Skin/Abscess/Foreign Body Stated complaint: Possible L Arm Infection Time Seen by Provider: 11/04/20 18:10 Source: patient, RN notes reviewed Mode of arrival: ambulatory Limitations: no limitations - History of Present Illness Initial comments: Patient is a 40-year-old male that presents to emergency department complaining of a left armpit abscess. He notes that he is him an express given Bactrim. He notes his and her nurse friends have been squeezing and draining it for the past 2 days. He notes that the pain has decreased and he has been taking his antibiotics as prescribed. He notes that he came in today due to second opinion and a culture done on it. Patient denied wanting it to be incision and drained at his artery draining really well on its own. Patient denied any other issues or complaints at this time. He was otherwise a well-appearing 40-year-old male. Chest pain shortness of breath headache nausea vomiting diarrhea constipation fever fatigue chills. - Related Data Home Medications Medication Instructions Recorded Confirmed Vitamin B Complex 1 tab PO DAILY 08/21/15 08/23/15 Previous Rx's Medication Instructions Recorded Hydrocodone/Acetaminophen [[place] 1 - 2 each PO Q4HR PRN #30 tab 08/23/15 5-325] LORazepam [Ativan] 0.5 mg PO BID #10 tab 04/24/17 LORazepam [Ativan] 1 mg PO HS 5 Days #5 tab 12/07/17 Doxycycline Monohydrate [Monodox] 100 mg PO Q12HR #20 cap 11/04/20 Allergies Allergy/AdvReac Type Severity Reaction Status Date / Time No Known Allergies Allergy Verified 11/04/20 18:08 Review of Systems ROS Statement: Those systems with pertinent positive or pertinent negative responses have been documented in the HPI. ROS Other: All systems not noted in ROS Statement are negative. Past Medical History Past Medical History: Cancer Additional Past Medical History / Comment(s): testicular Cancer History of Any Multi-Drug Resistant Organisms: None Reported Past Surgical History: Orthopedic Surgery, Tonsillectomy Additional Past Surgical History / Comment(s): orchiectomy, left shoulder, port-a-cath Past Anesthesia/Blood Transfusion Reactions: No Reported Reaction Past Psychological History: No Psychological Hx Reported Smoking Status: Current some day smoker Past Alcohol Use History: Occasional Past Drug Use History: None Reported General Exam Limitations: no limitations General appearance: alert, in no apparent distress Head exam: Present: atraumatic, normocephalic, normal inspection Eye exam: Present: normal appearance, PERRL, EOMI. Absent: scleral icterus, conjunctival injection, periorbital swelling Neck exam: Present: normal inspection Respiratory exam: Present: normal lung sounds bilaterally. Absent: respiratory distress, wheezes, rales, rhonchi, stridor Cardiovascular Exam: Present: regular rate, normal rhythm, normal heart sounds. Absent: systolic murmur, diastolic murmur, rubs, gallop, clicks Extremities exam: Present: normal inspection, full ROM, normal capillary refill. Absent: tenderness, pedal edema, joint swelling, calf tenderness Neurological exam: Present: alert, oriented X3 Psychiatric exam: Present: normal affect, normal mood Skin exam: Present: warm, dry, intact, normal color, erythema (Left axilla and bicep). Absent: rash Expanded Type of lesion: Present: abscess (Left axilla, draining well on its own with minimal pressure, mild tenderness.) Course Vital Signs 11/04/20 18:04 Temperature 99.1 F Pulse Rate 72 Respiratory 20 Rate Blood Pressure 142/83 O2 Sat by Pulse 99 Oximetry Medical Decision Making - Medical Decision Making 40-year-old male with a left armpit abscesses. Patient is taking antibiotics, Bactrim, as prescribed for the past 2 days. Wound culture ordered. Doxycycline sent to pharmacy for potential MRSA coverage. Case discussed with Dr. Spaulding, patient can discharge home. Disposition Clinical Impression: Abscess of axilla, left Disposition: HOME SELF-CARE Condition: Stable Instructions (If sedation given, give patient instructions): Abscess (ED) Additional Instructions: Please return to the Emergency Department if symptoms worsen or any other concerns. Follow-up with primary care in 1-2 days. Continue take antibiotics as prescribed until complete. Take Tylenol Motrin as needed for pain. Keep expressing pus with warm compress. Using a clean technique using alcohol swabs and gloves. Prescriptions: Doxycycline Monohydrate [Monodox] 100 mg PO Q12HR #20 cap Is patient prescribed a controlled substance at d/c from ED?: No Referrals: Cecil Luciano MD [Primary Care Provider] - 1-2 days Time of Disposition: 18:51
== END 2020-11-04 19:04 | disposition home or self-care (01) ==
LOC: EC 17:57
DX: L02.412 Cutaneous abscess of left axilla (principal); F17.200 Nicotine dependence, unspecified, uncomplicated
CPT/HCPCS: 87070; 87205; 99282

== ENCOUNTER → 2024-01-11 | Outpatient (CLI) | payer BC ==
--- NOTE | 2024-01-11 11:52 | XR ---
EXAMINATION TYPE: XR cervical spine limited DATE OF EXAM: 01/11/2024 9:00 AM COMPARISON: None CLINICAL INDICATION: Male, 43 years old with history of M54.12 radiculopathy; [facility] TECHNIQUE: The cervical spine was imaged in frontal, lateral, and odontoid. FINDINGS: The osseous structures show normal alignment without evidence of an acute fracture. There are osteoph ytes noted throughout the cervical spine on the anterior and lateral aspects of the vertebral bodies. The intervertebral disk spaces are narrowed at multiple levels Pedicles are intact. Soft tissues ar e within normal limits. The odontoid appears intact. IMPRESSION: 1. No fracture or dislocation. 2. Mild degenerative disc disease changes of the cervical spine. [facility], , 01/11/2024 11:50 AM
== END | disposition home or self-care (01) ==
LOC: RADXRMAIN 08:23
PROVIDERS: ATTEND Family Medicine
DX: M50.10 Cervical disc disorder with radiculopathy, unspecified cervical region (principal)
CPT/HCPCS: 72040

== ENCOUNTER → 2024-02-01 | Outpatient (CLI) | payer BC ==
--- NOTE | 2024-02-01 16:28 | MR ---
INDICATION: Patient age:Male; 43 years old; Reason for study: M50.30; [facility]. COMPARISON: Cervical spine radiograph 01/11/2024. TECHNIQUE: Multi planar, multi sequence imaging was performed. No Gadolinium was given. FINDINGS: Alignment: The cervical vertebral bodies have preserved heights. Alignment is within normal limits gi aniket patient positioning. Bones: Bone signal is within normal limits. Cord: The spinal cord is unremarkable with regards to their signal intensity and morphology. Discs: Mild multilevel disc desiccation is present. C2-C3: No significant disc pathology. The spinal canal is patent. No neural foraminal stenosis. C3-C4: No significant disc pathology. The spinal canal is patent. No neural foraminal stenosis. C4-C5: Minimal broad-based disc bulge without significant effacement of the anterior thecal sac. No neural foraminal stenosis. C5-C6: Mild broad-based disc bulge with mild effacement of the anterior thecal sac. Uncovertebral shari int hypertrophy with mild bilateral neuroforaminal stenosis. C6-C7: Mild broad-based disc bulge with mild effacement of the anterior thecal sac. Uncovertebral shari int hypertrophy with mild to moderate left neural foraminal stenosis. The right neural foramen is pat ent. C7-T1: No significant disc pathology. The spinal canal is patent. No neural foraminal stenosis. Other: None. IMPRESSION: 1. No evidence for disc herniation or significant spinal canal stenosis. 2. Mild multilevel degenerative disc disease and uncovertebral joint hypertrophy as described above. [facility], , 02/01/2024 4:26 PM
== END | disposition home or self-care (01) ==
LOC: RADMRIMAIN 15:25
PROVIDERS: ATTEND Family Medicine
DX: M47.812 Spondylosis without myelopathy or radiculopathy, cervical region (principal)
CPT/HCPCS: 72141